=== PATIENT | female | born 1990 | race Two or more races ===

== ENCOUNTER 2017-03-24 09:08 | Inpatient (IN) | payer SELFPAY ==
[~2017-03-24] VITALS: Ht 154.9 cm; Wt 65.7 kg
[2017-03-24] MEDS ORDERED: IPRATROPIUM BROM 0.5 MG/2.5ML INH SOL NEB ONE ×3 (09:30→14:15)
[2017-03-24] MEDS ORDERED: ALBUTEROL SULF 2.5 MG/0.5ML(0.5%) NEB SOLN NEB ONE ×3 (09:30→14:15)
[2017-03-24] MEDS ORDERED: methylPREDNISolone SOD SUCC 125 MG/2 ML VL IV ONE (11:15)
[2017-03-24] MEDS ORDERED: ACETAMINOPHEN 325 MG TAB PO ONE ×2 (11:33→11:45)
[2017-03-24] MEDS ORDERED: SODIUM CHLORIDE 0.9% 1,000 ML IV ONE (12:15)
[2017-03-24 12:45] LABS: Basophils # (auto) 0 uL; Basophils % (auto) 0.2 % (0.0-2.0); Eosinophils # (auto) 0.2 uL; Eosinophils % (auto) 1.2 % (0.0-7.0); Hematocrit 44.6 % (36.0-46.0); Hemoglobin 15.2 g/dL (12.2-16.2); Lymphocytes # (auto) 0.7 uL; Lymphocytes % (auto) 5.7 % (10.0-50.0); Mean Corpuscular Hemoglobin 30.5 pg (28.0-32.0); Mean Corpuscular Hgb Conc. 34.1 g/dL (32.0-36.0); Mean Corpuscular Volume 89.3 fL (80.0-100.0); Mean Platelet Volume 7.6 fL (6.9-10.8); Monocytes # (auto) 0.5 uL; Monocytes % (auto) 3.8 % (0.0-12.0); Neutrophils # (auto) 11.4 uL; Neutrophils % (auto) 89.1 % (37.0-80.0); Platelet Count (auto) 279 10^3/uL (140-450); Red Cell Distribution Width 12.9 % (11.8-14.3); White Blood Cell 12.8 10^3/uL (4.4-10.8)
[2017-03-24 13:04] LABS: BUN/Creatinine Ratio 12.3; Magnesium 2.2 mg/dL (1.6-2.6); Potassium 3.8 mmol/L (3.5-5.1)
[2017-03-24 13:47] LABS: Urine Bilirubin Negative (Negative); Urine Blood Negative /uL (Negative); Urine Color Yellow (Yellow); Urine Glucose Normal (Normal); Urine Ketone 1+ (Negative); Urine Mucus FEW (None Seen); Urine Nitrite Negative (Negative); Urine RBC 1 /hpf (0 - 4); Urine Squamous Epithelial Cell FEW /hpf (<5); Urine Urobilinogen Normal (Negative); Urine pH 5.5 (5.0-8.0)
[2017-03-24] MEDS ORDERED: LACTULOSE 20Gm/30ML SOLN PO PRN (16:15)
[2017-03-24] MEDS ORDERED: HYDROcodone-ACET 5/325MG TAB PO PRN (16:15)
[2017-03-24] MEDS ORDERED: ACETAMINOPHEN 500 MG TAB PO PRN (16:15)
[2017-03-24] MEDS ORDERED: ALBUTEROL SULF 2.5 MG/0.5ML(0.5%) NEB SOLN NEB PRN (16:15)
[2017-03-24] MEDS ORDERED: TEMAZEPAM 15 MG CAP PO PRN (16:15)
[2017-03-24] MEDS ORDERED: NITROGLYCERIN 0.4 MG SL TAB SL PRN (16:15)
[2017-03-24] MEDS ORDERED: LORazepam 0.5 MG TAB PO PRN (16:15)
[2017-03-24] MEDS ORDERED: MORPHINE SULF INJ 2 MG/ML SYRINGE 1ML IV PRN ×2 (16:15)
[2017-03-24] MEDS ORDERED: PROMETHAZINE HCL 25 MG/ML 1ML IV PRN (16:15)
[2017-03-24] MEDS: DOXYCYCLINE HYC 100MG/250ML 250 ML IV SCH ×3 (16:47→19:00)
[2017-03-24] MEDS: SODIUM CHLORIDE 0.9% 1,000 ML IV SCH ×5 (16:47→19:04)
[2017-03-24 17:27] VITALS: BP 128/67
[2017-03-24] MEDS: methylPREDNISolone SOD SUCC 40 MG/ML VL IV SCH (18:00)
[2017-03-24] MEDS: ALBUTEROL SULF 2.5 MG/0.5ML(0.5%) NEB SOLN NEB SCH (19:00)
[2017-03-24] MEDS: IPRATROPIUM BROM 0.5 MG/2.5ML INH SOL NEB SCH (19:00)
[2017-03-24 20:00] VITALS: BP 143/78
[2017-03-24] MEDS: FAMOTIDINE 20 MG TAB PO SCH (21:29)
[2017-03-24 22:00] VITALS: BP 143/78
[2017-03-25] MEDS: methylPREDNISolone SOD SUCC 40 MG/ML VL IV SCH ×3 (00:08→12:05)
[2017-03-25] MEDS: ALBUTEROL SULF 2.5 MG/0.5ML(0.5%) NEB SOLN NEB SCH ×4 (00:20→12:15)
[2017-03-25] MEDS: IPRATROPIUM BROM 0.5 MG/2.5ML INH SOL NEB SCH ×3 (00:20→12:15)
[2017-03-25 05:00] VITALS: BP 132/74
[2017-03-25 08:00] VITALS: BP 128/87
[2017-03-25 08:33] VITALS: BP 128/87
[2017-03-25] MEDS: FAMOTIDINE 20 MG TAB PO SCH (09:14)
[2017-03-25 12:14] VITALS: BP 124/75
[2017-03-25 13:17] LABS: Allen Test Yes; Base Excess -2.9 mmol/L (-2.0-2.0); Blood 02Sat 88.8 % (96-100); Blood COHb 0.2 % (0.5-1.5); Blood MetHb 0.4 % (0.0-1.5); HCO3 21.3 mmol/L (22-26.0); HHb 11.1 % (0.0-5.0); MODE ROOM AIR; O2Hb 88.3 % (94.0-97.0); PCO2 35.9 mmHg (35.0-45.0); PCO2(T) 35.9 mmHg (35.0-45.0); PO2 57.3 mmHg (80.0-100.0); PO2(T) 57.3 mmHg (80.0-100.0); Room 0251T; Sample Type Arterial; pH 7.392 (7.350-7.450)
[2017-03-25 15:07] VITALS: BP 124/75
[2017-03-25 15:48] VITALS: BP 124/75
== END 2017-03-25 15:48 | disposition home or self-care (01) | DRG 203 ==
LOC: ER 09:08 → TELE 09:09 → TELE-EAST 18:35
PROVIDERS: ADMIT Internal Medicine; ATTEND Internal Medicine
DX: J45.901 Unspecified asthma with (acute) exacerbation (principal); J20.9 Acute bronchitis, unspecified; Z83.3 Family history of diabetes mellitus; Z82.49 Family history of ischemic heart disease and other diseases of the circulatory system; Z80.42 Family history of malignant neoplasm of prostate
CPT/HCPCS: 36415; 36600; 71020; 80048; 81001; 81025; 82805; 83735; 85025; 94640; 94761; 96361; 96374; J3490